=== PATIENT | male | born 1990 | race Caucasian/White ===

== ENCOUNTER → 2018-05-11 | Outpatient (CLI) | payer MEDICAID | LOC: BMCIMAGING 08:46 | PROVIDERS: ATTEND Internal Medicine | DX: R22.2 Localized swelling, mass and lump, trunk (principal) ==

== ENCOUNTER → 2018-05-13 | Outpatient (CLI) | payer MEDICAID | LOC: FIMAGING 08:22 | PROVIDERS: ATTEND Internal Medicine | DX: M89.9 Disorder of bone, unspecified (principal) ==

== ENCOUNTER → 2019-02-02 | Outpatient (CLI) | payer MEDICAID | LOC: FIMAGING 16:12 | PROVIDERS: ATTEND Internal Medicine | DX: S02.2XXA Fracture of nasal bones, initial encounter for closed fracture (principal) ==